=== PATIENT | male | born 1960 | race Asian ===

== ENCOUNTER 2016-11-20 08:17 | Outpatient (CLI) | payer OTHER ==
[2016-11-20 09:07] LABS: PLATELET COUNT 305 K/uL (142-355)
[2016-11-20 09:19] LABS: POTASSIUM 3.9 mmol/L (3.6-5.2)
== END 2016-11-20 18:58 | disposition home or self-care (01) ==
LOC: LABW 08:17
PROVIDERS: Family Medicine
DX: E78.4 Other hyperlipidemia (principal); R53.83 Other fatigue; E55.9 Vitamin D deficiency, unspecified; E88.89 Other specified metabolic disorders
CPT/HCPCS: 36415; 80053; 80061; 80074; 82306; 82607; 84153; 84403; 84443; 85027

== ENCOUNTER 2018-10-01 16:43 | Outpatient (CLI) | payer OTHER | END 2018-10-01 23:42 | disposition home or self-care (01) | LOC: LAB 16:43 | DX: R10.11 Right upper quadrant pain (principal) | CPT/HCPCS: 82150; 83690 ==